=== PATIENT | male | born 1945 | race Caucasian/White ===

== ENCOUNTER 2024-05-29 10:27 | Observation (INO) | payer MEDICARE, OTHER ==
[~2024-05-29] VITALS: Ht 177.8 cm; Wt 76.1 kg
[2024-05-29 10:40] LABS: HEMATOCRIT 38.8 % (35.0-50.0); HEMOGLOBIN 13.5 g/dL (12.0-18.0); MCH 34.4 (27-36); MCHC 34.8 g/dl (30-36); MCV 98.9 fl (81-99); PLATELET COUNT 220 K/uL (140-440); RBC 3.92 M/ul (4.3-5.7); RDW 13.5 (10.5-15.0)
[2024-05-29] MEDS ORDERED: SODIUM CHLORIDE 0.9% 1,000 ML IV ONE (10:45)
[2024-05-29 10:55] LABS: ALBUMIN 3.4 g/dL (3.4-5.0); ALBUMIN/GLOBULIN RATIO 0.79 (1.1-2.4); ANION GAP 8.7 (7-21); BILIRUBIN, TOTAL 0.6 ng/dL (0.2-1.0); BUN/CREATININE RATIO 22.09 (6.0-28.6); CALCIUM 9.1 mg/dL (8.5-10.1); CREATININE, SERUM 1.72 mg/dL (0.70-1.30); POTASSIUM 4.7 mmol/L (3.5-5.1); PROTEIN, TOTAL 7.7 g/dL (6.4-8.2)
[2024-05-29 10:56] LABS: BANDS, MANUAL DIFF 4; EOSINOPHILS, MANUAL DIFF 1; LYMPHOCYTES, MANUAL DIFF 2; MONOCYTES, MANUAL DIFF 13; NEUTROPHILS, MANUAL DIFF 80
[2024-05-29] MEDS ORDERED: CARBIDOPA-LEVO1 EAC5 PO (11:02)
[2024-05-29] MEDS ORDERED: INBRIJA42 M1 PO (11:02)
[2024-05-29] MEDS ORDERED: ALDACTONE25 MG PO (11:02)
[2024-05-29] MEDS ORDERED: SODIUM CHLORIDE 0.9% 1,000 ML IV PRN (11:15)
[2024-05-29 12:01] LABS: BILIRUBIN, URINE NEGATIVE (negative); BLOOD/HGB, URINE TRACE-I (Negative); KETONE, URINE SMALL (Negative); LEUK ESTERASE, URINE TRACE (negative); NITRITE, URINE NEGATIVE (negative)
[2024-05-29 12:08] LABS: BACTERIA, URINE RARE /hpf (negative); CRYSTALS, URINE NONE SEEN (0-1+); EPITHELIAL CELLS, URINE SQUAMOUS 4+ /lpf (0-1+)
[2024-05-29 12:09] LABS: CASTS, URINE NONE SEEN \\lpf; COLLECTION TYPE, URINE CLEAN CATCH; REFLEX CULTURE, URINE No (No)
[2024-05-29] MEDS ORDERED: ACETAMINOPHEN 325 MG TAB PO PRN (16:45)
[2024-05-29] MEDS ORDERED: SODIUM CHLORIDE 0.9% 1,000 ML IV SCH (16:45)
[2024-05-29] MEDS ORDERED: ondansetron HCL 4 MG/2 ML VIAL IV PRN (16:45)
--- NOTE | 2024-05-29 17:25 | NUR ---
REPORT RECEIVED FROM KEATON GREENBERG IN THE EMERGENCY DEPARTMENT. PT ESCORTED IN [facility] TO MED/SURG FLOOR, ROOM 121. PTs NIECE, BREANN IS PRESENT AND STATES SHE INTENDS TO REMAIN WITH PT FOR THE NIGHT. VS AND WT TAKEN AND RECORDED. PT IS PLACED ON TELE #8, CONDOM CATH IS IN PLACE AND DRAINING FREELY ON SIDE OF BED. NO OTHER NEEDS AT THIS TIME, CALL LIGHT IN REACH.
[2024-05-29 17:43] VITALS: BP 113/71
--- NOTE | 2024-05-29 18:10 | NUR ---
RN Silvana in room doing new transfer assessment. Tele leads attached.
--- NOTE | 2024-05-29 18:33 | NUR ---
IVF INFUSING IN R AC WNL, NS AT 125ML/HR. PTs NIECE SUPPLIED FWW THAT BELONGS TO PT, NAME STICKER PLACED AND FWW IS AVAILABLE IN ROOM. BED ALARM ON, BED IN LOWEST POSITION, CONDOM CATH IN PLACE DRAINING FREELY TO R SIDE OF BED. SANDWICH BOX AND PUDDING PROVIDED FOR PT AT THIS TIME. NIJERAD CRAIN REMAINS IN ROOM. CALL LIGHT IN REACH.
--- NOTE | 2024-05-29 19:15 | NUR ---
REPORT RECEIVED FROM REANNA PUGH. pt RESTING IN THE BED. pt STARTING TO GET OUT OF THE BED. pt STATES HE HAS TO USE THE BR. 2PA TO BSC WITH FWW. pt DENIES ANY OTHER NEEDS AT THIS TIME. CALL LIGHT WITHIN REACH. MERCHANDISER SEASONAL CALLED INTO TO ASSIST pt BACK TO BED WHILE THIS RN CONTINUED WITH REPORT.
--- NOTE | 2024-05-29 20:35 | NUR ---
MD CALLED ABOUT REPEAT TROP RESULTS. MD CAME TO THE FLOOR TO SPEAK TO pt AND FAMILY ABOUT CONTINUES PLAN. NO OTHER NEEDS AT THIS TIME. CALL LIGHT WITHIN REACH.
[2024-05-29] MEDS ORDERED: MELATONIN 3 MG TAB PO PRN (21:00)
[2024-05-29 21:10] VITALS: BP 105/49
--- NOTE | 2024-05-29 21:18 | NUR ---
MOLD SHIFTER OBTAINED VITALS AND I&O. FLOEY BAG EMPTIED. PT STATES NO NEEDS AT THIS TIME. CALL LIGHT WITHIN REACH AND BED ALARM ON.
[2024-05-29 21:30] VITALS: BP 105/49
--- NOTE | 2024-05-29 21:30 | NUR ---
ASSESSMENT DONE. WHEEZES IN RIGHT LUNG. CONDOM CATH IN PLACE. IV ASSESSED. WNL. pt DENIES ANY OTHER NEEDS AT THIS TIME. CALL LIGHT WITHIN REACH. pt DENIES CHEST PAIN AT THIS TIME. WATER REFRESHED. IV ASSESSED, WNL.
--- NOTE | 2024-05-29 22:22 | EKG ---
[facility] [address] [facility] [place] [address] Signed Poor data quality, interpretation may be adversely affected Normal sinus rhythm Normal ECG No previous ECGs available Confirmed by Nicole Morejon MD () on 05/29/2024 10:22:12 PM Electronically Signed By: NICOLE MOREJON MD 05/29/242221 PATIENT NAME: ERIKAOPAL HAMILTONW Electrocardiogram DATE OF : 43 PHYSICIAN: NICOLE MOREJON MD REPORT #: [id number] REPORT IS CONFIDENTIAL AND NOT TO BE RELEASED WITHOUT AUTHORIZATION
--- NOTE | 2024-05-29 22:24 | EKG ---
[facility] [address] [facility] [place] [address] Signed Normal sinus rhythm Otherwise normal ECG Confirmed by Nicole Morejon MD () on 05/29/2024 10:24:34 PM Electronically Signed By: NICOLE MOREJON MD 05/29/242223 PATIENT NAME: OPAL JAMES Electrocardiogram DATE OF : 43 PHYSICIAN: NICOLE MOREJON MD REPORT #: [id number] REPORT IS CONFIDENTIAL AND NOT TO BE RELEASED WITHOUT AUTHORIZATION
--- NOTE | 2024-05-29 23:40 | NUR ---
pt RESTING IN THE BED WITH EYES CLOSED. RR EVEN AND UNLABORED. CALL LIGHT WITHIN REACH.
--- NOTE | 2024-05-30 01:04 | NUR ---
pt RESTING IN THE BED WITH EYES CLOSED. RR EVEN AND UNLABORED. CALL LIGHT WITHIN REACH.
[2024-05-30 01:47] VITALS: BP 120/63
--- NOTE | 2024-05-30 02:10 | NUR ---
SOURCING INTERN FOUND THAT THE PT HAD TAKEN OUT HIS IV, STERLING CATH, AND SPILLED IS WATER ON THE FLOOR. SOURCING INTERN CLEAN UP THE WATER, CHANGED BEDDING/GOWN, MEASURED URINE AND DISPOSED OF THE STERLING. ELVIA REPORTED THIS TO HIS NURSE.
--- NOTE | 2024-05-30 04:35 | NUR ---
pt RESTING IN THE BED WITH EYES CLOSED. RR EVEN AND UNLABORED. CALL LIGHT WITHIN REACH.
[2024-05-30 04:36] VITALS: BP 120/63
[2024-05-30 05:24] LABS: BASOPHILS 0.6 % (0-2); EOSINOPHILS 0.7 % (0-6); HEMATOCRIT 31.8 % (35.0-50.0); LYMPHOCYTES 17.8 % (24-44); MCH 34.8 (27-36); MCHC 34.5 g/dl (30-36); MCV 100.9 fl (81-99); MONOCYTES 12.6 % (0-12); NEUTROPHILS 68.3 % (39-80); PLATELET COUNT 155 K/uL (140-440); RBC 3.15 M/ul (4.3-5.7); RDW 14.1 (10.5-15.0)
[2024-05-30 05:38] VITALS: BP 122/67
[2024-05-30 05:46] LABS: ALBUMIN 2.7 g/dL (3.4-5.0); ALBUMIN/GLOBULIN RATIO 0.84 (1.1-2.4); ANION GAP 11.1 (7-21); BILIRUBIN, TOTAL 0.6 ng/dL (0.2-1.0); BUN/CREATININE RATIO 21.89 (6.0-28.6); CALCIUM 7.7 mg/dL (8.5-10.1); CREATININE, SERUM 1.37 mg/dL (0.70-1.30); MAGNESIUM 1.7 mg/dL (1.8-2.4); PHOSPHORUS, INORGANIC 2.6 mg/dL (2.5-4.9); POTASSIUM 4.1 mmol/L (3.5-5.1); PROTEIN, TOTAL 5.9 g/dL (6.4-8.2)
--- NOTE | 2024-05-30 07:06 | NUR ---
REPORT RECEIVED FROM KEATON BALDERAS. PT AWAKE AND ALERT IN BED, NITIN CRAIN IS PRESENT CONVERSING WITH PT. PT HAS NO REQUESTS AT THIS TIME, NITIN LEAVES FOR CAFETERIA, BED ALARM ON, CALL LIGHT IN REACH.
--- NOTE | 2024-05-30 08:02 | NUR ---
MEDICATION ADMINISTERED, SEE MAR. ASSESSMENT COMPLETE. PT IS IN BED WITH HOB ELEVATED EATING MCDONALDs BROUGHT BY NITIN. PT HAS COMPLAINTS OF TAILBONE PAIN RATED 4/10 HE REPORTS HAS BEEN ONGOING FOR A WEEK AFTER A FALL AT HOME. PT AND PTs FAMILY REPORT PT HAS HAD FREQUENT FALLS AT HOME. PT IS ALERT AND ORIENTED, HOWEVER IS UNSURE OF THE DATE AND RESPONDS "[facility]" WHEN ASKED WHERE WE ARE AT. PT REORIENTED TO DATE AND PLACE, VERBALIZES SURPRISE THAT HE IS HERE. PT DOES RECALL THAT HE HAS COME TO THE HOSPITAL FOLLOWING AN "ACCIDENT IN THE [place]". PTs NIECE REPORTS THIS ORIENTATION IS BASELINE. PT HAS TELE #[address] IV IN L FOREARM FLUSHES WNL AND HAS IVF INFUSING WNL. PT CONTINUES TO EAT HIS BREAKFAST AND STATES THAT HE IS LOOKING FORWARD TO GOING HOME. BED ALARM ON, NIECE REMAINS IN ROOM AT THIS TIME, PT HAS NO OTHER REQUESTS AT THIS TIME, CALL LIGHT IN REACH.
--- NOTE | 2024-05-30 08:26 | NUR ---
UR CLINICAL REVIEW: 2MN NIRMALA- [facility]ETS CRITERIA FOR OBSERVATION MEDICARE OBS 05/29/2024 @ 1637 ORDER MATCHES REG NO AUTH REQUIRED PER MEDICARE RULES DC PLAN PENDING EVALUATION 05/31/24
[2024-05-30] MEDS ORDERED: CARBIDOPA-LEVO1 EAC1 PO (08:32)
[2024-05-30] MEDS ORDERED: LOSARTAN POTAS100 MG PO (08:32)
[2024-05-30] MEDS ORDERED: VENTOLIN HFA18 GM INH (08:33)
[2024-05-30] MEDS ORDERED: ENOXAPARIN SODIUM 40 MG/0.4 ML SYR SUB-Q SCH (09:00)
--- NOTE | 2024-05-30 09:05 | NUR ---
INTO SEE PATIENT. PATIENT ALERT. PATIENT UNABLE TO TELL ME PHYSICAL ADDRESS. PATIENT SAYS HE LIVES AT HOME WITH WHO IS IN [place], [place]. PATIENT STATES "MY NIECE BREANN IS HERE TO TAKE ME HOME. I JUST GOT TO GET DISCHARGED FROM HERE." PATIENT MADE AWARE HE STILL HAS TO SEE DOCTOR THIS MORNING. HE SAYS HE DOES NOT WANT TO BE REFFERED TO A PCP. HE SAYS HIS [employer] ARCHITECT DR. CHIN HANDLES HIS MEDICAL. HE USES [facility] IN [place], [place]. USES A WALKER AT HOME AND DOES NOT HAVE IN STEPS TO GET INTO HIS HOUSE. DOES NOT USE OXYGEN OR CPAP AT HOME. ATTEMPTED TO CALL NIECE FOR MORE INFORMATION. UNABLE TO REACH HER.
[2024-05-30] MEDS ORDERED: XALATAN2.5 ML OU (09:30)
[2024-05-30] MEDS ORDERED: ADULT ASPIRIN R81 MG PO (09:31)
[2024-05-30] MEDS ORDERED: BRIMONIDINE TART5 ML OU (09:31)
[2024-05-30] MEDS ORDERED: VITAMIN B-121000 MCG PO (09:32)
[2024-05-30] MEDS ORDERED: SUPER B-50 COM1 EAC2 PO (09:33)
[2024-05-30] MEDS ORDERED: FOLIC ACID0.4 MG PO (09:33)
[2024-05-30] MEDS ORDERED: MILK THISTLE500 MG PO (09:33)
[2024-05-30] MEDS ORDERED: CENTRUM SILVER1 EAC9 PO (09:34)
--- NOTE | 2024-05-30 09:34 | NUR ---
MED REC COMPLETE
[2024-05-30 09:57] VITALS: BP 131/68
[2024-05-30 10:08] VITALS: BP 131/68
--- NOTE | 2024-05-30 10:08 | NUR ---
TALKED WITH PATIENT'S NIECE BREANN. PATIENT HAS PCP IN [facility]. PATIENT NIECE DENIES ANY NEEDS FOR CASE MANAGEMENT. PATIENT HAS DISCHARGE ORDERS.
[2024-05-30] MEDS ORDERED: PHARMACY RENAL DOSE ADJUSTMENT 1 DOSE MISC PO SCH (12:00)
== END 2024-05-30 10:45 | disposition home or self-care (01) ==
LOC: ED 10:27 → MS 16:43
PROVIDERS: Emergency Medicine; ADMIT Family Medicine; ATTEND Family Medicine
DX: R79.89 Other specified abnormal findings of blood chemistry (principal); N17.9 Acute kidney failure, unspecified; T68.XXXA Hypothermia, initial encounter; X31.XXXA Exposure to excessive natural cold, initial encounter; G20.A1 Parkinson's disease without dyskinesia, without mention of fluctuations; F02.80 Dementia in other diseases classified elsewhere, unspecified severity, without behavioral disturbance, psychotic disturbance, mood disturbance, and anxiety; Z79.899 Other long term (current) drug therapy; Z98.2 Presence of cerebrospinal fluid drainage device
CPT/HCPCS: 36415; 51702; 70450; 80053; 81001; 82553; 83605; 83735; 84100; 84484; 85025; 93005; 93010; 96372; 99285-25; G0378; J1650; J7030